=== PATIENT | male | born 1985 | race Caucasian/White ===

== ENCOUNTER 2022-01-31 22:44 | Emergency (ER) | payer OTHER ==
[~2022-01-31 22:44] MED LIST: PREDNISONE20 MG PO
[2022-01-31 23:39] LABS: HEMOGLOBIN 16.4 gm/dl (14.0-17.5); RED BLOOD COUNT 5.2 M/UL (4.20-5.50)
[2022-01-31 23:59] LABS: BUN/CREATININE RATIO 23 (0-10)
== END 2022-02-01 02:48 | disposition home or self-care (01) ==
LOC: ER1 22:44
PROVIDERS: Emergency Medicine
DX: R07.2 Precordial pain (principal); E11.9 Type 2 diabetes mellitus without complications
CPT/HCPCS: 71046; 80053; 82550; 82553; 84484; 85025; 93005; 99285